=== PATIENT | female | born 1955 | race Caucasian/White ===

== ENCOUNTER 2018-03-15 06:25 | Inpatient (IN) | payer BC, SELFPAY ==
[2018-03-02 13:14] VITALS: BP 141/78; PULSE 66; RESP 16; TEMP 37.3; O2SAT 94; BMI 33.6
--- NOTE | 2018-03-02 13:36 | SDCEKG_ITS ---
Test Reason : Blood Pressure : / mmHG Vent. Rate : 065 BPM Atrial Rate : 065 BPM P-R Int : 206 ms QRS Dur : 100 ms QT Int : 420 ms P-R-T Axes : 049 025 016 degrees QTc Int : 436 ms Normal sinus rhythm with sinus arrhythmia Normal ECG Confirmed by LUIS EDUARDO BENITEZ ([id number]), business editor TATY ZAFAR ([id number]) on 03/15/2018 6:46:33 PM Referred By: Rodriguez Pompa Confirmed By:LUIS EDUARDO BENITEZ
[2018-03-02 14:57] LABS: Hematocrit 43.1 % (37-47); Hemoglobin 14.4 g/dl (12.0-15.0); Mean Corp Hgb Conc 33.4 g/gl (32-36); Mean Corpuscular Hgb 29.3 pg (27.0-32.0); Mean Corpuscular Volume 87.6 fL (81-99); Mean Platelet Vol. 9.7 fl (6.2-12.0); Platelet Count 222 K/mm3 (150-450); RBC Distribution Width CV 13.6 % (11.6-14.6); RBC Distribution Width SD 43.4 fl (35.1-43.9); Red Blood Count 4.92 M/mm3 (4.2-5.4); White Blood Count 8.5 K/mm3 (4.4-11.0)
[2018-03-02 15:00] LABS: Scan Indicated on CBC? Y/N NO
[2018-03-02 15:29] LABS: Anion Gap 5 (5-15); BUN 20 mg/dL (7-18); BUN/Creat Ratio 26.4 RATIO (10-20); Calcium,Total 9.1 mg/dL (8.5-10.1); Chloride 107 mmol/L (98-107); Creatinine, Serum 0.76 mg/dL (0.55-1.02); EST Glomerular Filtration Rate 83 mL/min (>60); Est Glom Filt Rate - Afr Amer 100 mL/min (>60); Estimated Creatinine Clearance 76.55 ml/min; Glucose 89 mg/dL (74-106); Potassium 3.9 mmol/L (3.5-5.1); Sodium Level 143 mmol/L (136-145)
--- NOTE | 2018-03-15 06:25 | DT_ITS ---
This patient was seen during an EMR downtime March 08, 2018 - March 15, 2018. This patient may have a combination of paper and electronic documentation or all paper documentation. All documentation is viewable within the e-chart portion of [employer] for each patient visit.
[2018-03-15] MEDS: Cefazolin 2 GM in 0.9% Normal Saline 100 ML IV (09:02)
[2018-03-15 13:02] VITALS: BP 151/62; PULSE 50; RESP 16; TEMP 36.6; O2SAT 96; BMI 33.6
[2018-03-15 15:00] VITALS: BP 151/79; PULSE 62; RESP 16; TEMP 37.2; O2SAT 99
[2018-03-15] MEDS: oxyCODONE 5 MG Tablet PO (15:25)
[2018-03-15] MEDS: Morphine 2 MG/ML Syringe IV (16:15)
[2018-03-15 17:01] VITALS: BP 163/84; PULSE 73; RESP 16; TEMP 37.3; O2SAT 96
[2018-03-15] MEDS: Cefazolin 1 GM/50 ML BAG IV (18:35)
[2018-03-15 21:00] VITALS: BP 153/69; PULSE 77; RESP 18; TEMP 38.5; O2SAT 94
[2018-03-15] MEDS: Acetaminophen 500 MG Tablet 1000 MG PO (21:19)
[2018-03-15] MEDS: Senna/Docusate Sodium 1 Tablet 2 TABLET PO (21:19)
[2018-03-15 21:20] VITALS: BP 153/69; PULSE 77
[2018-03-15] MEDS: Metoprolol(XL)Succ 50 MG Tablet PO (21:20)
[2018-03-15] MEDS: morphine SR 15 MG Tablet PO (21:28)
[2018-03-15 21:30] VITALS: PULSE 77; RESP 18; O2SAT 94
[2018-03-16] VITALS (8 sets, daily range): BP systolic 106–160; BP diastolic 57–70; PULSE 69–75; RESP 16–18; TEMP 36.9–37.7; O2SAT 92–99
[2018-03-16] MEDS: Cefazolin 1 GM/50 ML BAG IV (01:02)
[2018-03-16] MEDS: oxyCODONE 5 MG Tablet PO ×3 (01:05→16:56)
[2018-03-16] MEDS: Morphine 4 MG/ML Syringe IV (03:40)
[2018-03-16 05:51] LABS: Hematocrit 35.9 % (37-47); Hemoglobin 12.1 g/dl (12.0-15.0); Mean Corp Hgb Conc 33.7 g/gl (32-36); Mean Corpuscular Hgb 29.9 pg (27.0-32.0); Mean Corpuscular Volume 88.6 fL (81-99); Mean Platelet Vol. 9.7 fl (6.2-12.0); Platelet Count 192 K/mm3 (150-450); RBC Distribution Width CV 13.7 % (11.6-14.6); RBC Distribution Width SD 43.8 fl (35.1-43.9); Red Blood Count 4.05 M/mm3 (4.2-5.4); White Blood Count 8.8 K/mm3 (4.4-11.0)
[2018-03-16 05:59] LABS: Scan Indicated on CBC? Y/N NO
[2018-03-16 06:08] LABS: Anion Gap 8 (5-15); BUN 11 mg/dL (7-18); BUN/Creat Ratio 13.4 RATIO (10-20); Calcium,Total 8.1 mg/dL (8.5-10.1); Chloride 105 mmol/L (98-107); Creatinine, Serum 0.82 mg/dL (0.55-1.02); EST Glomerular Filtration Rate 76 mL/min (>60); Est Glom Filt Rate - Afr Amer 92 mL/min (>60); Estimated Creatinine Clearance 70.95 ml/min; Glucose 136 mg/dL (74-106); Potassium 3.8 mmol/L (3.5-5.1); Sodium Level 141 mmol/L (136-145)
[2018-03-16] MEDS: Acetaminophen 500 MG Tablet 1000 MG PO ×3 (06:14→21:14)
--- NOTE | 2018-03-16 07:48 | PCM.PN.ORT ---
Subjective: Patient sitting at bedside. Pain well managed. No other complaints. Denies chest pain, shortness breath, calf pain, nausea vomiting. Objective: Dressings clean dry intact. Negative signs symptoms of DVT. Neurovascular is intact lower extremities no calf tenderness. Patient afebrile. Vital signs labs all within normal limits. - Physical Exam General: Alert, Oriented x3, Cooperative HEENT: PERRLA Oral: Moist Mucosa Neurological: Cranial nerves II-XII grossly intact Psych/Mental Status: Normal Affect, Alert and oriented to time, place, person, mood and affect Vital Signs Temp Pulse Resp BP Pulse Ox 100 F H 69 18 160/70 H 99 03/16/18 03:00 03/16/18 03:00 03/16/18 03:00 03/16/18 03:00 03/16/18 03:00 Oxygen Flow Rate (L/min) 2 Oxygen Delivery Method Nasal Cannula Weight: 98.883 kg Body Mass Index (BMI) 33.6 Intake and Output for Last 24 Hours 03/14/18 03/15/18 03/16/18 23:59 23:59 23:59 Intake Total 955 / 955 779 / 779 Balance 955 / 955 779 / 779 Laboratory Tests Past 24 Hrs 03/16/18 03/16/18 05:20 05:20 WBC 8.8 RBC 4.05 L Hgb 12.1 Hct 35.9 L MCV 88.6 MCH 29.9 MCHC 33.7 RDW 13.7 RDW Differential 43.8 Plt Count 192 MPV 9.7 Sodium 141 Potassium 3.8 Chloride 105 Carbon Dioxide 28.0 Anion Gap 8 BUN 11 Creatinine 0.82 Estim Creat Clear Calc 70.95 Est GFR (MDRD) Af Amer 92 Est GFR (MDRD) Non-Af 76 BUN/Creatinine Ratio 13.4 Glucose 136 H Calcium 8.1 L Medical Necessity - Tobacco Use Smoking Status: Never smoker Tobacco Use: Non-smoker Assessment/Plan Status post left total hip arthroplasty 1. Continue all pain medications as prescribed 2. Aspirin 325 mg 1 p.o. every 12 hours ?30 days for postop DVT prophylaxis 3. Begin physical therapy. Weight-bear as tolerated, with walker 4. Encourage incentive spirometry 5. Possible discharge home tomorrow
--- NOTE | 2018-03-16 08:20 | NURSING ---
MACARIO,GARNETT FIXER REPORTS PT PLACED BACK ON O2 AT 2L NC D/T CONT PO ALARMING THAT PT IS 87-88% ON RA. WILL CONT TO MONITOR.
[2018-03-16] MEDS: Celecoxib 200 MG Capsule PO ×2 (10:15→21:14)
[2018-03-16] MEDS: Senna/Docusate Sodium 1 Tablet 2 TABLET PO ×2 (10:15→21:14)
[2018-03-16] MEDS: hydroCHLOROthiazide 25 MG Tablet PO (10:15)
[2018-03-16] MEDS: morphine SR 15 MG Tablet PO ×2 (10:15→21:17)
--- NOTE | 2018-03-16 12:42 | CASEMGMT ---
See CM Assessment Link. DC PLAN: home on discharge. Pt states she does not have any discharge needs, is independent and is able to assist. Tasia CLINTONN RN ACM
--- NOTE | 2018-03-16 14:24 | CHAPLAIN ---
Type of Pastoral Visit _x__ Initial Visit ___ Follow-up Visit ___ On-call Visit ___ General Patient Visit ___ Spiritual Assessment ___ Family Conference ___ Bereavement ___ Rapid Response ___ Code Blue ___ Other (describe below) Pastoral Care Referral From _x__ Patient ___ Family ___ Nurse ___ Physician ___ Pictures Editor ___ Airframe [employer] Power Plant Mechanic ___ Other (describe below) Sacrament/Intervention _x__ Active listening ___ Anointing ___ Mandaeism ___ Bereavement ___ Communion ___ Autumn exploration ___ ___ Life review _x__ Prayer ___ Reconciliation ___ Sacrament of Sick _x__ Supportive presence ___ Wedding ___ Other (describe below) Pastoral Comments patient was welcoming of toll bridge attendant; pt stated that she came from [place] so that Dr. Pompa would do her hip surgery; Dr. Pompa had previously done her other hip and she wanted his care; pt is hopeful for outcome; pt said her goal is to get back to work in 4 weeks which will be up to the doctor; spouse of pt walked into room and was introduced; pt has no other concerns but welcomed a prayer; patient became tearful at mention of prayer for her; spouse and pt agree that pt has a sensitive heart about prayer even though she is not a christian member; spouse spoke of the importance of spiritual and emotional care for patients
[2018-03-16] MEDS: Metoprolol(XL)Succ 50 MG Tablet PO (21:14)
[2018-03-17] MEDS: oxyCODONE 5 MG Tablet PO (01:43)
[2018-03-17 02:06] VITALS: BP 111/59; PULSE 69; RESP 17; TEMP 36.6; O2SAT 94
[2018-03-17] MEDS: Acetaminophen 500 MG Tablet 1000 MG PO ×2 (05:33→13:15)
[2018-03-17 06:18] LABS: Hematocrit 35.8 % (37-47); Hemoglobin 11.7 g/dl (12.0-15.0); Mean Corp Hgb Conc 32.7 g/gl (32-36); Mean Corpuscular Hgb 29.1 pg (27.0-32.0); Mean Corpuscular Volume 89.1 fL (81-99); Mean Platelet Vol. 9.5 fl (6.2-12.0); Platelet Count 193 K/mm3 (150-450); RBC Distribution Width CV 13.9 % (11.6-14.6); RBC Distribution Width SD 45.5 fl (35.1-43.9); Red Blood Count 4.02 M/mm3 (4.2-5.4); White Blood Count 9.9 K/mm3 (4.4-11.0)
[2018-03-17 06:38] LABS: Scan Indicated on CBC? Y/N NO
[2018-03-17 07:50] VITALS: O2SAT 93
[2018-03-17 08:15] VITALS: BP 100/64; PULSE 59; RESP 18; TEMP 36.9; O2SAT 92
[2018-03-17] MEDS: hydroCHLOROthiazide 25 MG Tablet PO (08:15)
[2018-03-17] MEDS: Aspirin 325 MG Tablet PO (08:15)
[2018-03-17] MEDS: Senna/Docusate Sodium 1 Tablet 2 TABLET PO (08:15)
[2018-03-17] MEDS: Celecoxib 200 MG Capsule PO (08:15)
[2018-03-17] MEDS: morphine SR 15 MG Tablet PO (09:13)
--- NOTE | 2018-03-17 09:51 | PCM.PN.ORT ---
Subjective: Patient sitting at bedside. Pain well managed. Has no complaints. Ready for discharge home. Objective: This is clean dry intact, negative signs and symptoms of DVT, patient is afebrile neurovascular is intact. Vital signs labs all within normal limits - Physical Exam General: Alert, Oriented x3, Cooperative HEENT: PERRLA Oral: Moist Mucosa Neurological: Cranial nerves II-XII grossly intact Psych/Mental Status: Normal Affect, Alert and oriented to time, place, person, mood and affect Vital Signs Temp Pulse Resp BP Pulse Ox 98.4 F 59 L 18 100/64 92 03/17/18 08:15 03/17/18 08:15 03/17/18 08:15 03/17/18 08:15 03/17/18 08:15 Oxygen Flow Rate (L/min) 2 Oxygen Delivery Method Room Air Weight: 98.883 kg Body Mass Index (BMI) 33.6 Intake and Output for Last 24 Hours 03/15/18 03/16/18 03/17/18 23:59 23:59 23:59 Intake Total 955 / 955 1829 / 1829 240 / 240 Balance 955 / 955 1829 / 1829 240 / 240 Laboratory Tests Past 24 Hrs 03/17/18 05:50 WBC 9.9 RBC 4.02 L Hgb 11.7 L Hct 35.8 L MCV 89.1 MCH 29.1 MCHC 32.7 RDW 13.9 RDW Differential 45.5 H Plt Count 193 MPV 9.5 Medical Necessity - Tobacco Use Smoking Status: Never smoker Tobacco Use: Non-smoker Assessment/Plan Status post left total hip arthroplasty 1. Continue all pain medications as prescribed 2. Aspirin 325 mg 1 p.o. every 12 hours ?30 days for postop DVT prophylaxis 3. Continue physical therapy outpatient.. Weight-bear as tolerated, with walker 4. Follow-up as scheduled 5. Discharge home today
--- NOTE | 2018-03-17 10:00 | PCM.DC.THR ---
Discharge Diet: No Restrictions Discharge Activity: May Not Drive, May Shower, Use Walker May shower in (days): 1 - only if incision is dry and without drainage. Do NOT soak/submerge in tub/pool/melendez/stream/hot tub. May resume sexual activity in: No Restrictions Ice area for (Minutes): 20 - every hour while awake Weight Bearing Status: Weight bearing as tolerated Lifting Restrictions: 20 pounds Elevate: Operative Extremity Call your doctor if your incision/area has: Continuous Slow Oozing, Sudden Increased Bleeding, Increased Pain/ Swelling, Increased Redness, Foul Smelling Discharge Call your doctor if you observe: Fever of 101 or Higher, Inability to urinate, Inability to have a bowel movement, Shortness of breath, Fainting spells, Chest pain, Increased palpitations (irregular heartbeat), Calf discomfort, Uncontrolled pain Change Dressing in (Days):: 0 - Change daily and as needed. Remove Dressing in (days):: 8 Cleanse incision/area with: Soap & Water Allergies/Adverse Reactions: Allergies No Known Allergies Allergy (Verified 03/02/18 13:06) Medications to take at Discharge Biotin 10 mg PO DAILY 03/02/18 Calcium Carbonate/Vitamin D3 [Caltrate 600 Plus D3 Tablet] 1 each PO DAILY 03/02/18 Hydrochlorothiazide [Hctz] 25 mg PO DAILY 03/02/18 Krill/[place]-3/Dha/Epa/Lipids [Krill Oil 300 mg Softgel] 2 each PO DAILY 03/02/18 Metoprolol Succinate [Toprol Xl] 50 mg PO DAILY 03/02/18 Multivitamin [Daily Multiple Vitamin] 1 each PO DAILY 03/02/18 Soy Isofl/Blk Coh/Gr Tea/Yerba [[employer] Caplet] 2 each PO DAILY 03/02/18 Acetaminophen [Tylenol] 1,000 mg PO Q8 #90 tab 03/17/18 Aspirin 325 mg PO BIDCM #60 tab 03/17/18 Oxycodone [Oxyir] 5 - 10 mg PO Q6H PRN PRN 7 Days #60 tab 03/17/18 The following prescriptions were given: Oxycodone [Oxyir] 5 - 10 mg PO Q6H PRN PRN 7 Days #60 tab PRN Reason: SEE PAIN SCORE COMMENT Acetaminophen [Tylenol] 1,000 mg PO Q8 #90 tab Aspirin 325 mg PO BIDCM #60 tab Primary Care Physician: Dustin Doctor,Out of [Primary Care Provider] - Please Follow Up With: Valentin Spencer PA-C When: as scheduled
[2018-03-17 13:11] VITALS: BP 96/60; PULSE 60; RESP 16; TEMP 36.9; O2SAT 94
--- NOTE | 2018-03-18 13:28 | PCM.OPRPT ---
Report of Operation Date of Procedure: 03/15/18 Pre-Operative Diagnosis: Severe osteoarthritis left hip Post-Operative Diagnosis: Same Surgery/Procedure Performed:: Total hip arthroplasty using anterior lateral approach left Description of Surgical Findings:: Eburnation of bone, periarticular osteophytes consistent with end-stage osteoarthritis customer relations specialist: Kiersten Olguin Type of Anesthesia:: Spinal Anesthesiologist: Tim Mills Special Medications: txa Specimen's removed: Bone and soft tissue Estimated Blood Loss (mL): 150 Fluids Replaced: See anesthesia report Description of Procedure: Implants: [place] Accolade size 6, 127? valgus with 54 mm cup and appropriate size +0 MDM head Surgical indications: Patient has severe end-stage osteoarthritic changes in the left hip. They have failed conservative measures including activity modification, anti-inflammatories, use of assistive devices. This to the point where the pain affects their ability to enjoy life and complete activities of daily living without discomfort. Patient has elected to undergo the above procedure Procedure description: The patient was greeted in the preoperative area the left hip was marked with surgical marker preoperative antibiotics administered. The patient was then taken to or suite in stable condition. Preoperative tranexamic acid was also utilized. Once the patient was placed in the supine position on the operating room table and once adequate anesthesia was obtained they were then placed in the lateral decubitus position with the surgical hip facing the field. All bony prominences were well-padded. A commercial hip position was utilized. The appropriate extremity was then prepped and draped in usual sterile fashion. Ioban was placed on the skin. Surgical timeout was performed and surgery was commenced. Standard anterolateral approach to the hip was then performed incision was planned and carried out with a #10 blade. Dissection was then carried length of the incision to the IT band which was split proximally and distally. A Charnley retractor was then placed for soft tissue retraction exposing the gluteus medius. The hip was then approached through a transgluteal approach and dislocated through an anterior capsulectomy. Severe eburnation of bone was noted periarticular osteophytes were identified consistent with severe end-stage osteoarthritis. A femoral osteotomy was then created approximately 1 fingerbreadth above the lesser trochanter. This was measured and placed on the back table. Once this was complete acetabular retractors were placed anteriorly and posteriorly and a 4 mm Steinmann pin was placed anterior superior aspect of the acetabulum for soft tissue retention. Labrum was then removed from the acetabulum exposing the entire cup of the acetabulum. Sequential reaming was then commenced and the acetabulum was medialized and sequentially widened in order to accommodate appropriate size cup. The acetabular cup was then impacted into position to the appropriate depth referencing approximately 30? inversion 45? of inclination. Excellent purchase was obtained. No screws were placed in the cup. 10? hooded liner was then placed in the locking mechanism of the acetabulum, locking mechanism was engaged and confirmed to be locked. Attention was then turned to the femoral preparation. The hip was placed in the 90/90 position and a lateralizing box osteotome was utilized. Femoral starting awl was used followed by sequential broaching to the appropriate size. Excellent purchase was obtained with the stem no stem subsidence and excellent rotational stability was confirmed. A calcar reamer was then used in the trial head neck was placed on the broach. The hip was then located and taken through full range of motion flexion internal and external rotation as well as extension. Excellent stability was noted no impingement was identified of the components and leg lengths appear to be appropriate. The hip was at this point dislocated and the trial femoral components were removed. The final femoral stem was then implanted and impacted to the appropriate depth. Again excellent purchase was obtained no stem subsidence or rotational instability was noted. The hip was once again trialed and confirmation of leg length and stability was performed. Soft tissue tension also appeared to be appropriate. At this point the hip was redislocated and the trunnion was cleaned and dried meticulously in the appropriate size femoral head was placed on the clean dry trunnion using a 12/14 Castle taper. The hip was once again relocated and again taken through full range of motion. I did inject a cocktail of postoperative pain medication in the deep and superficial tissues. A quick Betadine bath was performed followed by copious irrigation. Anatomic closure of the gluteus medius and minimus was performed with #1 Vicryl [id number] type fashion followed by closure of the IT band with #1 Vicryl 0 Vicryl was utilized in subcutaneous tissue and surgical manjeet were placed in the skin. A well-padded nonadherent dressing was applied. Patient was taken to PACU in stable condition. No complications were identified. Will follow standard postop protocol for total hip arthroplasty. Patient must use assistive device for ambulation for approximately 6 weeks of the gluteal musculature heals. Physician food and nutrition services assistant was integral in all portions of this procedure. They assisted with positioning the patient, draping the extremity, holding retractors, closing the wound, and applying the dressing. This was all done under my direct supervision. The physician food and nutrition services assistant was essential for a successful, efficient surgery. - Complications None known - Admit VTE Documentation VTE Present on Admission: Yes VTE Mechan Device Prophylaxis: SCD's, Thigh High BUBBA Hose VTE Pharm Prophylaxis ordered?: Yes
--- NOTE | 2018-03-18 13:32 | OP.PCM_ITS ---
Report of Operation Date of Procedure: 03/15/18 Pre-Operative Diagnosis: Severe osteoarthritis left hip Post-Operative Diagnosis: Same Surgery/Procedure Performed:: Total hip arthroplasty using anterior lateral approach left Description of Surgical Findings:: Eburnation of bone, periarticular osteophytes consistent with end-stage osteoarthritis table worker: Kiersten Olguin Type of Anesthesia:: Spinal Anesthesiologist: Tim Mills Special Medications: txa Specimen's removed: Bone and soft tissue Estimated Blood Loss (mL): 150 Fluids Replaced: See anesthesia report Description of Procedure: Implants: [place] Accolade size 6, 127? valgus with 54 mm cup and appropriate size +0 MDM head Surgical indications: Patient has severe end-stage osteoarthritic changes in the left hip. They have failed conservative measures including activity modification, anti-inflammatories, use of assistive devices. This to the point where the pain affects their ability to enjoy life and complete activities of daily living without discomfort. Patient has elected to undergo the above procedure Procedure description: The patient was greeted in the preoperative area the left hip was marked with surgical marker preoperative antibiotics administered. The patient was then taken to or suite in stable condition. Preoperative tranexamic acid was also utilized. Once the patient was placed in the supine position on the operating room table and once adequate anesthesia was obtained they were then placed in the lateral decubitus position with the surgical hip facing the field. All bony prominences were well-padded. A commercial hip position was utilized. The appropriate extremity was then prepped and draped in usual sterile fashion. Ioban was placed on the skin. Surgical timeout was performed and surgery was commenced. Standard anterolateral approach to the hip was then performed incision was planned and carried out with a #10 blade. Dissection was then carried length of the incision to the IT band which was split proximally and distally. A Charnley retractor was then placed for soft tissue retraction exposing the gluteus medius. The hip was then approached through a transgluteal approach and dislocated through an anterior capsulectomy. Severe eburnation of bone was noted periarticular osteophytes were identified consistent with severe end- stage osteoarthritis. A femoral osteotomy was then created approximately 1 fingerbreadth above the lesser trochanter. This was measured and placed on the back table. Once this was complete acetabular retractors were placed anteriorly and posteriorly and a 4 mm Steinmann pin was placed anterior superior aspect of the acetabulum for soft tissue retention. Labrum was then removed from the acetabulum exposing the entire cup of the acetabulum. Sequential reaming was then commenced and the acetabulum was medialized and sequentially widened in order to accommodate appropriate size cup. The acetabular cup was then impacted into position to the appropriate depth referencing approximately 30? inversion 45? of inclination. Excellent purchase was obtained. No screws were placed in the cup. 10? hooded liner was then placed in the locking mechanism of the acetabulum, locking mechanism was engaged and confirmed to be locked. Attention was then turned to the femoral preparation. The hip was placed in the 90/90 position and a lateralizing box osteotome was utilized. Femoral starting awl was used followed by sequential broaching to the appropriate size. Excellent purchase was obtained with the stem no stem subsidence and excellent rotational stability was confirmed. A calcar reamer was then used in the trial head neck was placed on the broach. The hip was then located and taken through full range of motion flexion internal and external rotation as well as extension. Excellent stability was noted no impingement was identified of the components and leg lengths appear to be appropriate. The hip was at this point dislocated and the trial femoral components were removed. The final femoral stem was then implanted and impacted to the appropriate depth. Again excellent purchase was obtained no stem subsidence or rotational instability was noted. The hip was once again trialed and confirmation of leg length and stability was performed. Soft tissue tension also appeared to be appropriate. At this point the hip was redislocated and the trunnion was cleaned and dried meticulously in the appropriate size femoral head was placed on the clean dry trunnion using a 12/14 Castle taper. The hip was once again relocated and again taken through full range of motion. I did inject a cocktail of postoperative pain medication in the deep and superficial tissues. A quick Betadine bath was performed followed by copious irrigation. Anatomic closure of the gluteus medius and minimus was performed with #1 Vicryl [id number] type fashion followed by closure of the IT band with #1 Vicryl 0 Vicryl was utilized in subcutaneous tissue and surgical manjeet were placed in the skin. A well- padded nonadherent dressing was applied. Patient was taken to PACU in stable condition. No complications were identified. Will follow standard postop protocol for total hip arthroplasty. Patient must use assistive device for ambulation for approximately 6 weeks of the gluteal musculature heals. Physician neurology physician assistant was integral in all portions of this procedure. They assisted with positioning the patient, draping the extremity, holding retractors , closing the wound, and applying the dressing. This was all done under my direct supervision. The physician neurology physician assistant was essential for a successful, efficient surgery. - Complications None known - Admit VTE Documentation VTE Present on Admission: Yes VTE Mechan Device Prophylaxis: SCD's, Thigh High BUBBA Hose VTE Pharm Prophylaxis ordered?: Yes
== END 2018-03-17 13:28 | disposition home or self-care (01) | DRG 470 ==
PROVIDERS: Admitting Provider Orthopaedic Surgery; Visit Provider Orthopaedic Surgery
PROC: 0SRB0JZ Replacement of Left Hip Joint with Synthetic Substitute, Open Approach (ICD-10-PCS; CPT 27130; principal; 2018-03-15 08:20)
DX: M16.12 Unilateral primary osteoarthritis, left hip (principal); I10 Essential (primary) hypertension
CPT/HCPCS: 36415; 80048; 85027; 87081; 93005; 97116; 97161; 97166; 97530; 97535; C1776; J7120